=== PATIENT | female | born 1975 | race Caucasian/White ===

== ENCOUNTER 2019-02-05 08:19 | Day surgery (SDC) | payer OTHER ==
[2019-01-29 11:07] LABS: APPEARANCE,URINE SLIGHTLY-CLOUDY; BILIRUBIN,URINE NEGATIVE (NEGATIVE); COLOR,URINE YELLOW; GLUCOSE, URINE NEGATIVE (NEGATIVE); KETONES,URINE NEGATIVE (NEGATIVE); LEUKOCYTE ESTERASE,URINE TRACE (NEGATIVE); NITRITE,URINE NEGATIVE (NEGATIVE); PROTEIN,URINE NEGATIVE (NEGATIVE); URINE SPECIFIC GRAVITY 1.011; UROBILINOGEN,URINE NEGATIVE mg/dL (<2.0)
[2019-01-29 11:12] LABS: HEMATOCRIT 40.2 % (36.0-47.0); HEMOGLOBIN 13.3 g/dL (12.0-15.5); MEAN CORPUSCULAR HEMOGLOBIN 29.2 pg (27.0-33.4); MEAN CORPUSCULAR VOLUME 88 fl (80-97); PLATELET COUNT 226 10^3/uL (150-450); RED BLOOD COUNT 4.55 10^6/uL (3.72-5.28); RED CELL DISTRIBUTION WIDTH 13.6 % (11.5-14.0); WHITE BLOOD COUNT 6.9 10^3/uL (4.0-10.5)
[2019-01-29 11:46] LABS: ALANINE AMINOTRANSFERASE 20 U/L (9-52); ALBUMIN 4.3 g/dL (3.5-5.0); ALKALINE PHOSPHATASE 44 U/L (38-126); ANION GAP 10 (5-19); ASPARTATE AMINO TRANSFERASE 17 U/L (14-36); BILIRUBIN,DIRECT 0.3 mg/dL (0.0-0.4); BILIRUBIN,TOTAL 0.5 mg/dL (0.2-1.3); BLOOD UREA NITROGEN 9 mg/dL (7-20); CALCIUM 9.7 mg/dL (8.4-10.2); CARBON DIOXIDE 27 mmol/L (22-30); CHLORIDE 104 mmol/L (98-107); GLUCOSE 78 mg/dL (75-110); POTASSIUM 5.3 mmol/L (3.6-5.0); SODIUM 141.2 mmol/L (137-145); TOTAL PROTEIN 6.8 g/dL (6.3-8.2)
[~2019-02-05 08:19] MED LIST: CLINDAMYCIN 900 MG/D5W RTU 900 MG/50 ML RTUPB IV PRN; DEXTROSE 5% IV PRN; GABAPENTIN 300 MG CAPSULE ONE; GABAPENTIN 300 MG CAPSULE PO PRN; GENTAMICIN SULFATE IV PRN; WATER IV PRN
[2019-02-05] MEDS ORDERED: RINGERS SOLUTION,LACTATED 1,000 ML IV PRN (08:20)
[2019-02-05] MEDS ORDERED: CLINDAMYCIN 900 MG/D5W RTU 900 MG/50 ML RTUPB IV ONE (08:59)
[2019-02-05] MEDS ORDERED: MIDAZOLAM 2 MG/2 ML INJ ONE (10:16)
[2019-02-05] MEDS ORDERED: FENTANYL CITRATE INJ/PF 250 MCG/5 ML AMPULE ONE (10:16)
[2019-02-05] MEDS ORDERED: PROPOFOL INJ 200 MG/20 ML VIAL IV ONE (10:17)
[2019-02-05] MEDS ORDERED: ACETAMINOPHEN 1,000 MG/100 ML RTUPB IV ONE (10:17)
[2019-02-05] MEDS ORDERED: BUPIVACAINE HCL 0.25 % INJ/PF (2.5 MG/1 ML) 30 ML VIAL ONE (10:24)
[2019-02-05] MEDS ORDERED: MORPHINE SULFATE 10 MG/ML INJ IV PRN (10:59)
[2019-02-05] MEDS ORDERED: PROMETHAZINE HCL INJ 25 MG/1 ML VIAL IV PRN ×2 (10:59)
[2019-02-05] MEDS ORDERED: MEPERIDINE HCL/PF INJ 25 MG/1 ML DISP.SYRIN IV PRN (10:59)
[2019-02-05] MEDS ORDERED: FENTANYL CITRATE INJ/PF 100 MCG/2 ML AMPUL IV PRN ×3 (10:59)
[2019-02-05] MEDS ORDERED: ONDANSETRON HCL INJ/PF 4 MG/2 ML SDV IV PRN ×2 (10:59→13:59)
[2019-02-05] MEDS ORDERED: DIPHENHYDRAMINE HCL 50 MG/ML VIAL IV PRN (10:59)
[2019-02-05] MEDS ORDERED: LIDOCAINE 1%/EPINEPHRINE INJ 20 ML VIAL ONE (11:09)
[2019-02-05] MEDS ORDERED: EPHEDRINE SULFATE INJ 50 MG/1 ML AMPULE ONE (11:44)
[2019-02-05] MEDS ORDERED: ROCURONIUM BROMIDE INJ 50 MG/5 ML VIAL IV ONE (13:41)
[2019-02-05] MEDS ORDERED: ONDANSETRON HCL INJ/PF 4 MG/2 ML SDV ONE (13:41)
[2019-02-05] MEDS ORDERED: GLYCOPYRROLATE 1 MG/5 ML VIAL ONE (13:41)
[2019-02-05] MEDS ORDERED: KETOROLAC TROMETHAMINE 60 MG/2 ML SDV ONE (13:41)
[2019-02-05] MEDS ORDERED: LIDOCAINE 2% INJ-PF (20 MG/ML) 2 ML AMPUL ONE (13:41)
[2019-02-05] MEDS ORDERED: NEOSTIGMINE METHYLSULFATE 10 MG/10 ML VIAL ONE (13:41)
[2019-02-05] MEDS ORDERED: DEXAMETHASONE SOD PHOSPHATE INJ 4 MG/1 ML VIAL ONE (13:41)
[2019-02-05] MEDS ORDERED: OXYCODONE HCL IR 5 MG TABLET PO PRN (13:59)
--- NOTE | 2019-02-05 14:05 | Discharge Summary ---
Discharge Summary (SDC) - Discharge Final Diagnosis: Pelvic pain Abnormal uterine bleeding Vaginal wall cyst Date of Surgery: 02/05/19 Discharge Date: 02/05/19 Condition: Good Forms: Post Operative Treatment or Instructions: Robotic assisted total laparoscopic hysterectomy and bilateral salpingectomy Vaginal wall cystectomy Diagnostic cystoscopy Referrals: KIM HERNÁNDEZ MD [NO LOCAL MD] - (For clinical concerns call HOME HEALTH BILLING SPECIALIST RN @ [phone]. To schedule your follow up appt for 2 weeks, call physician compensation analyst at [phone]) Discharge Diet: As Tolerated Respiratory Treatments at Home: Deep Breathing/Coughing Discharge Activity: Activity As Tolerated, Balance Activity w/Rest, No Lifting Over 10 Pounds, Pelvic Rest, Slowly Increase Activity Home Care Assistance: None Needed Report the Following to Your Physician Immediately: Vomiting, Increase in Pain, Fever over 101 Degrees, Unusual Bleeding, Drainage-Foul Smelling, Increased Vaginal Bleed, Large Clots, IV Site Infection Signs, Urinary Infection Signs
[2019-02-05] MEDS ORDERED: SCOPOLAMINE HYDROBROMIDE 1.5 MG PATCH.TD72 TD ONE (19:30)
[2019-02-05 20:31] VITALS: BP 130/88
--- NOTE | 2019-03-07 12:40 | OPERATIVE REPORT E ---
Operative Report NAME: APRYL BOLES : 1975 AGE: 43Y DATE OF SURGERY: 02/05/2019 ROOM: 205 PREOPERATIVE DIAGNOSIS: Abnormal uterine and vaginal bleeding and vaginal wall mass. POSTOPERATIVE DIAGNOSIS: Abnormal uterine and vaginal bleeding and vaginal wall mass. OPERATION: Robotic-assisted total laparoscopic hysterectomy and bilateral salpingectomy, and excision of vaginal sidewall mass. SURGEON: KIM HERNÁNDEZ M.D. ANESTHESIA: General. COMPLICATIONS: None. ESTIMATED BLOOD LOSS: 50 mL. URINE OUTPUT: Clear at the end of the procedure. SPECIMENS: Uterus, cervix, bilateral fallopian tubes, and vaginal wall cyst contents and cyst wall. FINDINGS: The patient had an approximately 2 x 3 cm, palpable, soft, mobile mass in the upper right vaginal sidewall approximately 3 cm from the cervix, 6 cm from the vaginal introitus. Intra-abdominally her uterus and fallopian tubes and ovaries appeared to be normal with no other abnormal findings in the pelvis. INDICATIONS: This is a 43-year-old female with a history of abnormal uterine bleeding and pelvic pain with intercourse. She failed treatment with an IUD and other medical interventions. After discussing the risks, benefits, and alternatives, including, but not limited to, observation, medical management, ablation, operative hysteroscopy, open abdominal hysterectomy, total vaginal hysterectomy, and regarding the vaginal wall cyst, we discussed observation versus drainage versus removal, the patient consented to the above procedures. PROCEDURE: After the patient was properly consented, she was taken to the operating room where general anesthesia was introduced with endotracheal intubation. She was transferred to a dorsal lithotomy position in adjustable Taye stirrups and prepped and draped in the usual sterile fashion. A Mcgraw catheter was placed in the bladder. Surgical time out was held. I began by inspecting the vaginal sidewall mass, 1% lidocaine with epinephrine was injected to help with hemostasis as well as to hydrodissect the plane. An incision with a scalpel was made over the mass. It was then dissected out bluntly with hemostats. The mass contained a chocolate-colored fluid. The cystic contents and the cyst wall were removed and sent to pathology. The vaginal wall was then closed in 2 layers, a deep layer with 2-0 Vicryl suture in a running fashion and then a 3-0 Vicryl suture in running fashion to close the vaginal mucosa. Next, I began with placement of the [employer] uterine manipulator in the typical fashion. I then changed my gloves and proceeded above with 0.25% plain Marcaine local anesthetic placed in the umbilicus. A 12 mm skin incision was made with a scalpel followed by a Veress needle introduced into the peritoneal cavity with correct placement ascertained by a drop in CO2 pressure to 0 mmHg. Pneumoperitoneum was established to a pressure of 15 mmHg. A 12 mm bladeless trocar was advanced into the pneumoperitoneum and immediate visualization with the camera demonstrated atraumatic entry. We subsequently placed 2 right and 1 left lateral 8 mm port in a typical routine of local anesthetic, skin incision, and placement of the port under direct visualization. With all the ports in place, the patient was put in steep Trendelenburg position. The robot was docked, and I scrubbed out and proceeded to the robotic console. The pelvic anatomy was inspected and the findings were noted above. The ureters were identified with peristalsis in their usual course at the pelvic brim bilaterally. Dissection was begun on the right using the fenestrated bipolar graspers and the vessel sealer. The round ligament on the right was cauterized and transected. Next, the broad ligament was opened and dissected inferiorly and anteriorly to create the bladder flap, which was reduced inferiorly. Next, the fallopian tube was dissected from the tubo-ovarian ligament. The dissection was then continued along the lateral portion of the uterine body to connect with the previously transected round ligament. The broad ligament was then opened and the uterine artery was dissected out, identified, cauterized, and transected at the area next to the lower uterine segment. Then, being very careful to hug the uterus during this portion of the procedure, the dissection was continued along the side of the cervix to the top of the GOLDY ring. The same dissection was repeated on the left-hand side. The areas of dissection were noted to be hemostatic. Next, the vessel sealer was switched out for monopolar scissors. The edge of the [employer]Care cervical cap was identified and the colpotomy was initiated with monopolar cautery and carried around circumferentially until the specimen was free and pulled through the vagina. The cuff was then closed with a running V-Loc suture of 0 Monocryl incorporating the uterosacral pedicles for support. The pelvis was copiously irrigated, and hemostasis was noted to be excellent. The abdomen was deflated and the robot was undocked, and all of the instruments and ports were removed. The 12 mm port site fascia was closed with an 0-Vicryl suture, and the skin of the 8 and 12 mm laparoscopic ports were closed with 4-0 Monocryl in a subcuticular fashion. A Dermabond dressing was applied. Anesthesia was reversed. Sponge, lap, and needle counts were correct x2 at the end of the procedure, and the patient was taken to the PACU in stable condition. DICTATING PHYSICIAN: KIM HERNÁNDEZ M.D. [id number] PHY#: [id number] ID: [id number] JOB#: [id number] ACCT: [id number] cc:KIM HERNÁNDEZ M.D. >
== END 2019-02-05 21:03 | disposition home or self-care (01) ==
LOC: OROUT 08:19 → 2N 14:38 → OROUT 21:03
PROVIDERS: ATTEND Obstetrics & Gynecology
DX: R10.2 Pelvic and perineal pain (principal); N93.9 Abnormal uterine and vaginal bleeding, unspecified; N89.8 Other specified noninflammatory disorders of vagina; N83.8 Other noninflammatory disorders of ovary, fallopian tube and broad ligament; F17.210 Nicotine dependence, cigarettes, uncomplicated
CPT/HCPCS: 57135; 58571; S2900; 36415; 80053; 81001; 81025; 840; 84132; 85027; 86850; 86900; 86901; 88304; 88305; 88307; 88313; 88342; J0131; J1100; J1580; J1885; J2250; J2405; J2704; J2710; J3010; J3490; J7060